=== PATIENT | female | born 1990 | race African-American/Black ===

== ENCOUNTER 2023-07-14 20:12 | Emergency (ER) | payer OTHER ==
[2023-07-14 20:30] VITALS: BP 146/75; O2SAT 100
[2023-07-14] MEDS ORDERED: BUFFERED LIDOCAINE 10 ML SYRINGE SUBQ STA (20:36)
--- NOTE | 2023-07-14 20:48 | ED Physician Documentation ---
PD HPI UPPER EXT INJURY - Stated complaint Stated Complaint: L FINGER LAC - Chief complaint Chief Complaint: Laceration - History obtained from History obtained from: Patient - Additonal information Additional information: Right-handed woman is up-to-date on tetanus and she cut her left middle finger with a knife while preparing dinner just prior to arrival. PD PAST MEDICAL HISTORY - Past Medical History Past Medical History: Yes Respiratory: Asthma - Past Surgical History Past Surgical History: No - Present Medications Home Medications: Ambulatory Orders Medication Instructions Recorded Confirmed Albuterol Sulf [Ventolin Hfa 1 - 2 puffs INH Q4HR PRN 07/14/23 07/14/23 Inhaler] Etonogestrel [Nexplanon] 68 mg SQ ONCE 07/14/23 07/14/23 Loratadine [Claritin] 10 mg PO DAILY 07/14/23 07/14/23 - Allergies Allergies/Adverse Reactions: Allergies Allergy/AdvReac Type Severity Reaction Status Date / Time No Known Drug Allergies Allergy Verified 07/14/23 20:24 - Social History Does the pt smoke?: No Smoking Status: Never smoker Does the pt drink ETOH?: No Does the pt have substance abuse?: No - Immunizations Immunizations are current?: Yes - POLST Patient has POLST: No PD ED PE NORMAL - Vitals Vital signs reviewed: Yes - General General: Alert and oriented X 3, No acute distress - Extremities Extremities: Other (There is a V-shaped laceration on the pulp of the left middle finger without distal neurovascular compromise. There is active bleeding.) - Neuro Neuro: Alert and oriented X 3, Normal speech Results - Vitals Vitals: Vital Signs - 24 hr 07/14/23 20:24 Temperature 36.8 C Heart Rate 82 Respiratory 18 Rate Blood Pressure 146/75 H O2 Saturation 100 Oxygen O2 Source Room air Procedures - Laceration (location) L 3rd finger Length in cm: 3 Wound type: Curved, Into subcut fat Neurovascular status: Sensory intact, Motor intact Anesthesia: Lidocaine 1%, With bicarb Skin layer closure: Nylon, Interrupted, Size #-0 - enter number (4-0), Sutures - enter # (7) Other: Patient tolerated well, No complications, Neurovascular intact, Tetanus UTD Departure - Departure Disposition: 01 Home, Self Care Clinical Impression: Laceration of left middle finger w/o foreign body w/o damage to nail Qualifiers: Encounter type: initial encounter Qualified Code(s): S61.213A - Laceration without foreign body of left middle finger without damage to nail, initial encounter Condition: Good Record reviewed to determine appropriate education?: Yes Instructions: ED Laceration Hand Comments: Come back for any signs of infection which would include: Redness, swelling, drainage, increased pain, or fevers. You can wash it soap and water. Keep it covered and moist with bacitracin ointment which is available over the counter; avoid neosporin. Follow-up with your physician in about 14 days for suture removal. Forms: PCP List
[2023-07-14] MEDS ORDERED: HYDROcod/ACET 5/325 Prepack 4 PO STA (21:06)
== END 2023-07-14 21:31 | disposition home or self-care (01) ==
LOC: ED 20:12
DX: S61.213A Laceration without foreign body of left middle finger without damage to nail, initial encounter (principal); W26.0XXA Contact with knife, initial encounter; Y93.G1 Activity, food preparation and clean up
CPT/HCPCS: 12002; 99282